=== PATIENT | female | born 1985 | race Asian ===

== ENCOUNTER 2022-04-28 11:45 | Emergency (ER) | payer OTHER ==
[~2022-04-28] VITALS: Ht 180.3 cm; Wt 65.0 kg
[2022-04-28] MEDS ORDERED: IBUPROFEN 600 MG TABLET PO ONE (12:45)
[2022-04-28] MEDS ORDERED: IBUP-2070 PO (13:11)
[2022-04-28 13:25] VITALS: BP 106/66
== END 2022-04-28 13:26 | disposition home or self-care (01) ==
LOC: EMS 11:56
DX: S69.92XA Unspecified injury of left wrist, hand and finger(s), initial encounter (principal); V00.121A Fall from non-in-line roller-skates, initial encounter; Y93.89 Activity, other specified; Y92.89 Other specified places as the place of occurrence of the external cause; Y99.8 Other external cause status
CPT/HCPCS: 99283